=== PATIENT | male | born 1970 | race Caucasian/White ===

== ENCOUNTER 2019-03-12 16:32 | Emergency (ER) | payer OTHER ==
--- NOTE | 2019-03-12 17:08 | ED Physician Documentation ---
PD HPI UPPER EXT INJURY - Stated complaint Stated Complaint: LT SHOULDER JOINT PX - Chief complaint Chief Complaint: Ext Problem - History obtained from History obtained from: Patient - History of Present Illness Location: Left, Shoulder, Other (some in chest) Type of injury: Other (He noted onset of left shoulder pain and also some epigastric discomfort off and on the last day or 2 and then the shoulder pain is been consistent the last several hours. It is not concurrent with the epigastric discomfort in the shoulder pain is more sharp and does worsen with movement. He has had a more discomfort in the epigastric region that over the last week or so has been improved with eating at times. He had had about 25 pound weight gain several months ago and had noticed some more reflux and heartburn intermittently. He does walk a lot at work and has not noticed any exertionally related chest pain or dyspnea.). No: Fall, Twist Where injury occurred: Home Timing - duration: Hours (he has had the shoulder pain for few hours today) Timing - details: Intermittant Improved by: Rest (In the sense of not moving his arm and torso.) Worsened by: Moving (He has noticed the pain in the shoulder today being a bit worse with some shoulder movement. The chest discomfort he has noticed changing at times with eating. He had use some Tums the other day as well with some slight improvement.), Other (He states he does a lot of stairs and walking at work and typically climbs about 17 flights of stairs a day and walks a few miles over the course of the day. He has not noticed chest pain or shortness of breath with these activities.) Associated symptoms: No: Weakness, Numbness Similar symptoms before: Has not had sx before Recently seen: Not recently seen Review of Systems Constitutional: denies: Fever Nose: denies: Rhinorrhea / runny nose, Congestion Throat: denies: Sore throat Cardiac: reports: Chest pain / pressure (epigastric area intermittently for days/week. Not exertional (does "17 flights of stairs and several miles walking at work daily, and feel fine doing that").) Respiratory: denies: Cough GI: denies: Nausea, Vomiting, Diarrhea Musculoskeletal: denies: Neck pain, Back pain Neurologic: denies: Generalized weakness, Near syncope PD PAST MEDICAL HISTORY - Past Medical History Cardiovascular: Hypertension - Past Surgical History Past Surgical History: No - Present Medications Home Medications: Ambulatory Orders Medication Instructions Recorded Confirmed Aspirin [Aspirin EC] 81 mg PO DAILY #30 tablet. 03/12/19 Famotidine 20 mg PO DAILY #30 tablet 03/12/19 Metoprolol Succinate 25 mg PO 03/12/19 03/12/19 amLODIPine [Norvasc] 5 mg PO DAILY 03/12/19 03/12/19 - Allergies Allergies/Adverse Reactions: Allergies Allergy/AdvReac Type Severity Reaction Status Date / Time Sulfa (Sulfonamide Allergy Rash Verified 12/01/14 18:04 Antibiotics) - Social History Does the pt smoke?: Yes Smoking Status: Current every day smoker Does the pt drink ETOH?: No Does the pt have substance abuse?: No - Family History Family history: reports: CAD (several family members), Venous thromboembolism (one grandfather). denies: Aortic aneursym, Aortic dissection - Immunizations Immunizations are current?: Yes - POLST Patient has POLST: No PD ED PE NORMAL - Vitals Vital signs reviewed: Yes - General General: Alert and oriented X 3, No acute distress, Well developed/nourished - HEENT HEENT: Moist mucous membranes, Pharynx benign - Neck Neck: Supple, no meningeal sign, No adenopathy - Cardiac Cardiac: RRR, No murmur - Respiratory Respiratory: Clear bilaterally - Abdomen Abdomen: Soft, Non tender - Derm Derm: Normal color, Warm and dry - Extremities Extremities: No tenderness to palpate, Normal ROM s pain, No edema, No calf tenderness / cord - Neuro Neuro: Alert and oriented X 3, No motor deficit, Normal speech Results - Vitals Vitals: Vital Signs - 24 hr 03/12/19 16:47 Temperature 36.8 C Heart Rate 72 Respiratory 20 Rate Blood Pressure 141/104 H O2 Saturation 97 Oxygen O2 Source Room air - EKG (time done) 16:47 Rate: Rate (enter#) (69) Rhythm: NSR [place]: Normal Intervals: Normal HI QRS: Normal Ischemia: Normal ST segments. No: ST elevation c/w ischemia, ST depression - Labs Labs: Laboratory Tests 03/12/19 03/12/19 03/12/19 17:45 17:45 17:45 WBC 3.6 L RBC 4.39 L Hgb 14.2 Hct 42.0 MCV 95.7 H MCH 32.3 H MCHC 33.8 RDW 11.9 L Plt Count 172 MPV 10.3 Neut # (Auto) 2.1 Lymph # (Auto) 1.0 L [place] # (Auto) 0.4 Eos # (Auto) 0.1 Baso # (Auto) 0.0 Absolute Nucleated RBC 0.00 Nucleated RBC % 0.0 Sodium 138 Potassium 4.1 Chloride 102 Carbon Dioxide 28 Anion Gap 8.0 BUN 13 Creatinine 1.0 Estimated GFR (MDRD) 80 L Glucose 107 H Calcium 9.6 Magnesium 2.4 Total Bilirubin 1.5 H AST 26 ALT 24 Alkaline Phosphatase 53 Troponin I High Sens < 2.3 L B-Natriuretic Peptide Total Protein 7.4 Albumin 4.5 Globulin 2.9 Albumin/Globulin Ratio 1.6 Lipase 35 03/12/19 17:45 WBC RBC Hgb Hct MCV MCH MCHC RDW Plt Count MPV Neut # (Auto) Lymph # (Auto) [place] # (Auto) Eos # (Auto) Baso # (Auto) Absolute Nucleated RBC Nucleated RBC % Sodium Potassium Chloride Carbon Dioxide Anion Gap BUN Creatinine Estimated GFR (MDRD) Glucose Calcium Magnesium Total Bilirubin AST ALT Alkaline Phosphatase Troponin I High Sens B-Natriuretic Peptide 19 Total Protein Albumin Globulin Albumin/Globulin Ratio Lipase - Rads (name of study) chest xray Radiology: Prelim report reviewed, See rad report (no acute process) PD MEDICAL DECISION MAKING - ED course Complexity details: reviewed results (EKG enzymes and chest x-ray are normal and he has had some shoulder pain and a little bit of epigastric discomfort for several hours now. I feel he is stable for discharge without any signs of acute coronary syndrome at this time.), re-evaluated patient (He states his chest discomfort was improved with some antacid here.), considered differential (He has components that sound musculoskeletal with left shoulder and some sternal area pain that is worse with shoulder movement and deep breathing but not with palpation. Some component sound reflux like that is improved with eating and at times with Tums. He has not had exertionally related symptoms per se and states he walks a lot at work and climbs stairs often without any exertional symptoms per se. However he does have a family history of heart disease and some of the episodes of chest discomfort are just a soreness without provocation. Further evaluation with EKG enzymes and chest x-ray here today. If normal, he still should explore it further with his primary care to get a stress test and echo to fully exclude heart disease.), d/w patient Departure - Departure Disposition: 01 Home, Self Care Clinical Impression: Chest discomfort Shoulder pain, left Qualifiers: Chronicity: acute Qualified Code(s): M25.512 - Pain in left shoulder Condition: Stable Record reviewed to determine appropriate education?: Yes Instructions: ED Chest Pain Atypical Unkn Cause Follow-Up: [facility] [Provider Group] Prescriptions: Aspirin [Aspirin EC] 81 mg PO DAILY #30 tablet. Famotidine 20 mg PO DAILY #30 tablet Comments: It is not clear the exact cause of your symptoms. Component sounds possibly reflux or heartburn and so I would suggest some famotidine acid reducing medicine daily for the next few weeks. You could also use antacids such as Tums or Maalox or Mylanta periodically with symptoms. Parts of your pain with the shoulder sound possibly musculoskeletal and so you can use some Tylenol or ibuprofen if needed for that. The concern would be whether this symptoms represent heart disease. Your EKG chest x-ray and blood tests do not show any signs of a acute heart problems. Further testing to fully explore the concern for heart disease would include a stress test and possibly an ultrasound of your heart called an echocardiogram. Follow-up with your primary care on Thursday for arranging further heart testing to fully exclude heart disease. Meanwhile we can treat it with the aspirin a day and increase your metoprolol from 25 to 50 mg daily (either once daily or the 25 mg twice a day). This would be treatment for heart disease if there is. Return if worsening or consistent symptoms. Activity as tolerated based on any symptoms resulting from exertion.
[2019-03-12] MEDS ORDERED: FAMOTIDINE 20 MG TABLET PO STA (17:37)
[2019-03-12] MEDS ORDERED: ACETAMINOPHEN 325 MG TABLET PO STA (17:43)
[2019-03-12 17:50] LABS: BASOPHILS % (AUTO) 0.3 %; EOSINOPHILS # (AUTO) 0.1 10^3/uL (0.0-0.7); EOSINOPHILS % (AUTO) 1.7 %; HGB - HEMOGLOBIN 14.2 g/dL (14.0-18.0); LYMPHOCYTES % (AUTO) 27.5 %; MEAN CORPUSCULAR HEMOGLOBIN 32.3 pg (27.0-31.0); MEAN CORPUSCULAR HGB CONC 33.8 g/dL (32.0-36.0); MEAN CORPUSCULAR VOLUME 95.7 fL (80.0-94.0); MEAN PLATELET VOLUME 10.3 fL (7.4-11.4); MONOCYTES # (AUTO) 0.4 10^3/uL (0.0-1.0); MONOCYTES % (AUTO) 10.1 %; NEUTROPHILS # (AUTO) 2.1 10^3/uL (1.5-6.6); NEUTROPHILS % (AUTO) 60.1 %; PLT - PLATELET COUNT 172 10^3/uL (130-450); RED BLOOD COUNT 4.39 10^6/uL (4.70-6.10); RED CELL DISTRIBUTION WIDTH 11.9 % (12.0-15.0); WHITE BLOOD COUNT 3.6 x10^3/uL (4.8-10.8)
[2019-03-12 18:03] LABS: ALBUMIN 4.5 g/dL (3.2-5.5); ALBUMIN/GLOBULIN RATIO 1.6 (1.0-2.2); BILIRUBIN,TOTAL 1.5 mg/dL (0.2-1.0); CALCIUM 9.6 mg/dL (8.5-10.3); MAGNESIUM 2.4 mg/dL (1.7-2.8); TOTAL PROTEIN 7.4 g/dL (6.7-8.2)
[2019-03-12] MEDS ORDERED: ASPIRIN EC 81 MG TABLET PO STA (18:28)
--- NOTE | 2019-03-12 18:29 | XRAY Report ---
Reason: left chest/shoulder pain Procedure Date: 03/12/2019 Accession Number: [id number] / [id number] Procedure: XR - Chest 2 View X-Ray CPT Code: 28059 Final Report FULL RESULT: EXAM: CHEST RADIOGRAPHY EXAM DATE: 03/12/2019 05:49 PM. CLINICAL HISTORY: Left chest/shoulder pain. COMPARISON: None. TECHNIQUE: 2 views. FINDINGS: Lungs/Pleura: No focal opacities evident. No pleural effusion. No pneumothorax. Normal volumes. Mediastinum: Heart and mediastinal contours are unremarkable. Other: Right diaphragmatic convexity likely represents eventration. IMPRESSION: No acute intrathoracic plain film abnormality. [facility]
[2019-03-12 18:37] VITALS: BP 150/114
== END 2019-03-12 18:42 | disposition home or self-care (01) ==
LOC: ED 16:32
DX: R07.89 Other chest pain (principal); M25.512 Pain in left shoulder; R10.13 Epigastric pain; Z82.49 Family history of ischemic heart disease and other diseases of the circulatory system; I10 Essential (primary) hypertension; F17.200 Nicotine dependence, unspecified, uncomplicated; Z79.82 Long term (current) use of aspirin
CPT/HCPCS: 36415; 71046; 80053; 83690; 83735; 83880; 84484; 85025; 93005; 99283; 99284; A9270